=== PATIENT | male | born 1985 | race Asian ===

== ENCOUNTER 2020-05-23 21:21 | Emergency (ER) | payer SELFPAY ==
[~2020-05-23] VITALS: Ht 175.3 cm; Wt 72.7 kg
[2020-05-23 21:23] VITALS: BP 135/81
[2020-05-23] MEDS ORDERED: ACETAMINOPHEN 325 MG TABLET PO ONE (22:15)
[2020-05-23] MEDS ORDERED: CefTRIAXone SODIUM 1 GM/VIAL IM ONE (22:30)
[2020-05-23] MEDS ORDERED: LIDOCAINE/PF 1% 2 ML VIAL IM ONE (22:30)
== END 2020-05-23 23:05 | disposition home or self-care (01) ==
LOC: EMS 21:21
DX: S90.561A Insect bite (nonvenomous), right ankle, initial encounter (principal); L08.9 Local infection of the skin and subcutaneous tissue, unspecified; W57.XXXA Bitten or stung by nonvenomous insect and other nonvenomous arthropods, initial encounter; Y93.89 Activity, other specified; Y92.89 Other specified places as the place of occurrence of the external cause; Y99.8 Other external cause status
CPT/HCPCS: 96372; 99283; J0696; J3490

== ENCOUNTER 2020-05-27 17:15 | Emergency (ER) | payer MEDICAID ==
[~2020-05-27] VITALS: Ht 175.3 cm; Wt 72.7 kg
[2020-05-27] MEDS ORDERED: antibiotic PO (17:45)
[2020-05-27] MEDS ORDERED: DEXAMETHASONE 4 MG TABLET PO ONE (18:00)
[2020-05-27 19:05] VITALS: BP 122/77
== END 2020-05-27 19:08 | disposition home or self-care (01) ==
LOC: EMS 17:16
DX: J02.9 Acute pharyngitis, unspecified (principal); F17.210 Nicotine dependence, cigarettes, uncomplicated
CPT/HCPCS: 87430; 99283; 99406; J8540